=== PATIENT | female | born 1960 | race American Indian/Alaskan Native ===

== ENCOUNTER 2018-05-15 20:33 | Emergency (ER) | payer OTHER ==
[2018-05-15 21:49] LABS: Basophils % (Auto) 0.9 % (0.0-1.8); Eosinophils # (Auto) 0.1 K/mm3 (0.0-0.4); Eosinophils % (Auto) 2.4 % (0.0-4.3); Hematocrit 41.6 % (30.3-42.9); Hemoglobin 14.1 gm/dl (10.1-14.3); Lymphocytes # (Auto) 1.6 K/mm3 (1.2-5.4); Lymphocytes % (Auto) 31.4 % (13.4-35.0); Mean Corpuscular HGB Conc 34 % (30-34); Mean Corpuscular Hemoglobin 33 pg (28-32); Mean Corpuscular Volume 97 fl (79-97); Monocytes # (Auto) 0.4 K/mm3 (0.0-0.8); Monocytes % (Auto) 7.9 % (0.0-7.3); Platelet Count 133 K/mm3 (140-440); Red Blood Count 4.31 M/mm3 (3.65-5.03); Red Cell Distribution Width 14.2 % (13.2-15.2)
--- NOTE | 2018-05-15 21:54 | Emergency Department Report ---
HPI - General Chief Complaint: Fall Time Seen by Provider: 05/15/18 20:47 - HPI HPI: 57-year-old female presents to the emergency department via EMS from home with complaint of some back pain after a slip and fall in her kitchen. The patient says that she been dealing with some water leaking. She heard a strange noise in the kitchen and went to check on it, slipped on the water, and fell backwards. She thinks that she had her head but denies any loss of consciousness. She denies any numbness or paresthesias or any problems moving her extremities. She did not take anything or get anything for her symptoms. On presentation. She came in in a c-collar and on a backboard. She has a past medical history of hypertension. ED Past Medical Hx - Past Medical History Hx Hypertension: Yes - Social History Smoking Status: Never Smoker Substance Use Type: None ED Review of Systems ROS: Stated complaint: FALL/BODY INJURY Other details as noted in HPI Comment: All other systems reviewed and negative Constitutional: denies: chills, fever Eyes: denies: eye pain, eye discharge, vision change ENT: denies: ear pain, throat pain Respiratory: denies: cough, shortness of breath, wheezing Cardiovascular: denies: chest pain, palpitations Gastrointestinal: denies: abdominal pain, nausea, diarrhea Genitourinary: denies: urgency, dysuria, discharge Musculoskeletal: back pain, myalgia Skin: denies: rash, lesions Neurological: denies: numbness, paresthesias Physical Exam - Physical Exam Vital Signs: Vital Signs 05/15/18 20:46 Temperature 98.6 F Pulse Rate 89 Blood Pressure 143/87 O2 Sat by Pulse 96 Oximetry Physical Exam: GENERAL: The patient is well-developed well-nourished. HENT: Normocephalic. Atraumatic. Patient has moist mucous membranes. EYES: Extraocular motions are intact. Pupils equal reactive to light bilaterally. No nystagmus. NECK: Supple. Trachea is midline. CHEST/LUNGS: Clear to auscultation. There is no respiratory distress noted. HEART/CARDIOVASCULAR: Regular. There is no tachycardia. There is no murmur. ABDOMEN: Abdomen is soft, nontender. Patient has normal bowel sounds. There is no abdominal distention. SKIN: Skin is warm and dry. NEURO: The patient is awake, alert, and oriented. The patient is cooperative. The patient has no focal neurologic deficits. The patient has normal speech. MUSCULOSKELETAL: There is some mild tenderness palpation to the right hip but no obvious deformity. There is no limitation range of motion. There is no evidence of acute injury. BACK: There is both midline and bilateral paraspinal tenderness along the upper lumbar and the lower thoracic back but no step-off or deformity. ED Course Vital Signs 05/15/18 20:46 Temperature 98.6 F Pulse Rate 89 Blood Pressure 143/87 O2 Sat by Pulse 96 Oximetry ED Medical Decision Making - Lab Data Result diagrams: 05/15/18 21:31 05/15/18 21:31 - Radiology Data Radiology results: report reviewed, image reviewed interpreted by me: X-ray of the right femur does not show any fracture, dislocation or any acute processes. X-rays of the thoracic and lumbar spines do not show any fractures, subluxations or any other acute process. EXAM: CT CERVICAL SPINE WO CON HISTORY: Trauma TECHNIQUE: Helical axial CT imaging of the cervical spine. Images are reconstructed in the sagittal and coronal planes. PRIORS: None. FINDINGS: The vertebral bodies have normal height and alignment. There is no evidence of fracture or subluxation. The paraspinous soft tissues are unremarkable. IMPRESSION: No evidence of acute fracture or subluxation. Transcribed By: AILYN Dictated By: KENNEY AGRAWAL MD Electronically Authenticated By: KENNEY AGRAWAL MD Signed Date/Time: 05/15/182217 EXAM: CT HEAD/BRAIN WO CON HISTORY: Trauma TECHNIQUE: CT was performed from the foramen magnum through the vertex in the axial plane without the use of intravenous contrast. PRIORS: None. FINDINGS: The roy/white matter attenuation pattern is normal. There is no mass lesion or mass effect. There are no abnormal extra-axial fluid collections. There is no evidence of acute intracranial hemorrhage or infarct. The ventricles are of normal size and configuration. The skull and orbits are unremarkable. The visualized paranasal sinuses are clear. IMPRESSION: Normal CT of the head. Transcribed By: AILYN Dictated By: KENNEY AGRAWAL MD Electronically Authenticated By: KENNEY AGRAWAL MD Signed Date/Time: 05/15/182214 - Medical Decision Making This patient presents with complaint of a headache and some back pain and hip pain after a slip and fall on some water in her kitchen. No loss of consciousness. She does not have any focal, motor or sensory deficits in her cranial nerves are intact. CT of the head did not show any bleed, shift, mass or any other acute process. CT of cervical spine did not show any fracture, subluxation or any acute process. We also did x-rays of the right femur and the thoracic and lumbar spines that also were normal examinations without any acute processes found. She was given a Isom for her headache with some improvement. Vital signs stable throughout her ED course. Prior to discharge patient was seen ambulatory throughout the emergency department and appeared stable while doing so. She will follow up with her primary care physician and will return to the ER with any worsening of her symptoms or any acute distress. - Differential Diagnosis brain bleed, skull fracture, contusion, concussion, fractures, sprain, stra Critical Care Time: No Critical care attestation.: If time is entered above; I have spent that time in minutes in the direct care of this critically ill patient, excluding procedure time. ED Disposition Clinical Impression: Fall Qualifiers: Encounter type: initial encounter Qualified Code(s): W19.XXXA - Unspecified fall, initial encounter Back pain Qualifiers: Back pain location: back pain in unspecified location Chronicity: acute Back pain laterality: bilateral Qualified Code(s): M54.9 - Dorsalgia, unspecified Headache Qualifiers: Headache type: unspecified Headache chronicity pattern: unspecified pattern Intractability: not intractable Qualified Code(s): R51 - Headache Disposition: DC-01 TO HOME OR SELFCARE Is pt being admited?: No Condition: Stable Instructions: Minor Head Injury (ED), Acute Headache (ED), Back Pain (ED), Fall Prevention (ED) Additional Instructions: Please follow-up with your primary care physician in the next few days. Return to the emergency Department with any worsening of your symptoms or any acute distress. Referrals: PRIMARY CARE, [Primary Care Provider] - [facility] Time of Disposition: 01:23
--- NOTE | 2018-05-15 22:15 | Cat Scan Report ---
FINAL REPORT EXAM: CT HEAD/BRAIN WO CON HISTORY: Trauma TECHNIQUE: CT was performed from the foramen magnum through the vertex in the axial plane without the use of intravenous contrast. PRIORS: None. FINDINGS: The roy/white matter attenuation pattern is normal. There is no mass lesion or mass effect. There are no abnormal extra-axial fluid collections. There is no evidence of acute intracranial hemorrhage or infarct. The ventricles are of normal size and configuration. The skull and orbits are unremarkable. The visualized paranasal sinuses are clear. IMPRESSION: Normal CT of the head.
--- NOTE | 2018-05-15 22:19 | Cat Scan Report ---
FINAL REPORT EXAM: CT CERVICAL SPINE WO CON HISTORY: Trauma TECHNIQUE: Helical axial CT imaging of the cervical spine. Images are reconstructed in the sagittal and coronal planes. PRIORS: None. FINDINGS: The vertebral bodies have normal height and alignment. There is no evidence of fracture or subluxation. The paraspinous soft tissues are unremarkable. IMPRESSION: No evidence of acute fracture or subluxation.
[2018-05-15 22:43] LABS: Alanine Aminotransferase 18 units/L (7-56); Albumin 4.3 g/dL (3.9-5); BUN/Creatinine Ratio 28; Blood Urea Nitrogen 17 mg/dL (7-17); Calcium 9.1 mg/dL (8.4-10.2); Hemolysis Index 20
--- NOTE | 2018-05-16 00:28 | XRay Report ---
FINAL REPORT EXAM: XR FEMUR 2+V RT HISTORY: Trauma TECHNIQUE: AP and lateral views of the right femur PRIORS: None. FINDINGS: The bones are normally aligned and mineralized. There is no evidence of fracture or subluxation. The soft tissues are unremarkable. IMPRESSION: No evidence of acute injury.
[2018-05-16] MEDS ORDERED: NORCO 5/325 PO ONE (00:35)
--- NOTE | 2018-05-16 00:52 | XRay Report ---
FINAL REPORT PROCEDURE: XR SPINE THORACIC 2V TECHNIQUE: Thoracic spine radiographs, including AP and lateral projections. CPT 82373 HISTORY: Trauma COMPARISON: No prior studies are available for comparison. FINDINGS: Alignment: Normal . Vertebral body height: Normal . Disk spaces: Normal . Fracture(s): None . Bone mineralization: Normal . IMPRESSION: Normal Examination.
--- NOTE | 2018-05-16 00:53 | XRay Report ---
FINAL REPORT PROCEDURE: XR SPINE LUMBOSACRAL 2-3V TECHNIQUE: Lumbar spine radiographs, including AP, lateral, and lumbosacral spot views. CPT 24507 HISTORY: Trauma COMPARISON: No prior studies are available for comparison. FINDINGS: Alignment: Normal. Vertebral body heights/Disk spaces: Normal. Fracture(s): None. Facets: Normal. Bone mineralization: Normal. IMPRESSION: Normal Examination.
[2018-05-16 01:40] VITALS: BP 123/81
== END 2018-05-16 01:40 | disposition home or self-care (01) ==
LOC: ED 20:33
DX: M54.5 Low back pain (principal); M54.6 Pain in thoracic spine; I10 Essential (primary) hypertension; R51 Headache; W01.0XXA Fall on same level from slipping, tripping and stumbling without subsequent striking against object, initial encounter; Y93.89 Activity, other specified; Y99.8 Other external cause status; Y92.000 Kitchen of unspecified non-institutional (private) residence as the place of occurrence of the external cause
CPT/HCPCS: 36415; 70450; 72070; 72100; 72125; 80053; 85025

== ENCOUNTER 2018-06-14 09:30 | Outpatient (CLI) | payer OTHER ==
--- NOTE | 2018-06-14 10:57 | XRay Report ---
RIGHT KNEE, 3 views: History: Pain. Moderate osteoarthritic changes are identified in all 3 compartments of the right knee. No evidence for fracture, bone lesion or osteochondral defect. A small joint effusion is identified on the lateral image. IMPRESSION: Moderate osteoarthritis. Small joint effusion. No acute process identified.
--- NOTE | 2018-06-14 10:58 | XRay Report ---
LEFT SHOULDER: History: Pain. Routine views demonstrate normal bony and soft tissue structures with normal joint alignment of the shoulder. IMPRESSION: Left shoulder within normal limits.
== END 2018-06-14 09:31 | disposition home or self-care (01) ==
LOC: XRAY 09:30
PROVIDERS: ATTEND Internal Medicine
DX: M17.11 Unilateral primary osteoarthritis, right knee (principal); M25.512 Pain in left shoulder; I10 Essential (primary) hypertension

== ENCOUNTER 2018-11-24 15:45 | Emergency (ER) | payer OTHER ==
[2018-11-24 16:10] VITALS: BP 148/101
--- NOTE | 2018-11-24 16:12 | Emergency Department Report ---
Chief Complaint: Abdominal Pain Stated Complaint: DIZZY Time Seen by Provider: 11/24/18 16:08 - HPI History of Present Illness: CC DIZZY THINKS SHE MIGHT ANEMIA BM YESTERDAY NORMAL NO FEVER NO CO ABD PAIN HX ANEMIA RECENT UGI/LGI WORK UP HTN PSH COLONOSCOPY ENDOSCOPY- 10/06 AT [facility]- SEE PTS PAPERWORK HYSTERECTOMY KNEE ON R KNEE MSE COMPLETED MSE screening note: Focused history and physical exam performed. Due to findings the following was ordered: ED Disposition for MSE Condition: Stable Instructions: Abdominal Pain (ED)
[2018-11-24 16:37] LABS: Basophils % (Auto) 0.4 % (0.0-1.8); Eosinophils # (Auto) 0.2 K/mm3 (0.0-0.4); Eosinophils % (Auto) 4.2 % (0.0-4.3); Hemoglobin 13.9 gm/dl (10.1-14.3); Lymphocytes # (Auto) 2.1 K/mm3 (1.2-5.4); Lymphocytes % (Auto) 39.7 % (13.4-35.0); Mean Corpuscular HGB Conc 34 % (30-34); Mean Corpuscular Volume 95 fl (79-97); Monocytes # (Auto) 0.4 K/mm3 (0.0-0.8); Monocytes % (Auto) 7.8 % (0.0-7.3); Platelet Count 149 K/mm3 (140-440); Red Cell Distribution Width 14.3 % (13.2-15.2)
[2018-11-24 16:53] LABS: Alanine Aminotransferase 17 units/L (7-56); Albumin 4.3 g/dL (3.9-5); BUN/Creatinine Ratio 10; Blood Urea Nitrogen 6 mg/dL (7-17); Calcium 9.1 mg/dL (8.4-10.2); Hemolysis Index 6
[2018-11-24 16:55] LABS: Bilirubin,Direct < 0.2 mg/dL (0-0.2)
[2018-11-24 17:24] LABS: Bilirubin,Urine NEG (Negative); Blood,Urine NEG (Negative); Color,Urine Colorless (Yellow); Protein,Urine <15 mg/dL mg/dL (Negative); Urobilinogen,Urine < 2.0 mg/dL (<2.0); WBC,Urine < 1.0 /HPF (0.0-6.0)
--- NOTE | 2018-11-24 20:34 | XRay Report ---
PROCEDURE: Chest. TECHNIQUE: PA and lateral views. HISTORY: Chest wall pain. COMPARISONS: None. FINDINGS: The heart size is mildly enlarged. There is mild tortuosity of the thoracic aorta. The lungs are oliva r and well expanded. There are no pleural effusions. The soft tissues and regional skeleton are unrem arkable. IMPRESSION: Mild cardiomegaly. This document is electronically signed by Huang Mcmahon MD., November 24 2018 08:32:03 PM ET
[2018-11-24] MEDS ORDERED: IBUPROFEN PO ONE (20:42)
[2018-11-24] MEDS ORDERED: BENADRYL PO ONE (20:44)
--- NOTE | 2018-11-24 20:48 | Emergency Department Report ---
ED Abdominal Pain HPI - General Chief Complaint: Abdominal Pain Stated Complaint: DIZZY Time Seen by Provider: 11/24/18 16:08 Source: patient Mode of arrival: Ambulatory Limitations: No Limitations - History of Present Illness Initial Comments: Patient's seizure after female who presents for dizziness and intermittent midepigastric pain radiating to left upper back denies nausea vomiting no shortness of breath no diaphoresis no filament coming to patient denies cardiac history hx of GI polyps however there is no n/v no bloody stools pt is tolerating po intake pt denies sob no activity intolerance does endorse URI with sinus pressure MD Complaint: abdominal pain Onset/Timin -: week(s) Location: epigastric Radiation: back Migration to: no migration Severity scale (0 -10): 3 Quality: aching (spasm blas) Consistency: intermittent Improves With: other (belching ) Worsens With: movement Associated Symptoms: denies: nausea, vomiting, diarrhea, fever, chills, constipation, dysuria, hematemesis, hematochezia, melena, hematuria, anorexia, s yncope - Related Data LMP (females 10-50): other (post menopausal) Previous Rx's Medication Instructions Recorded Last Taken Type Ibuprofen 800 mg PO TID PRN #30 tablet 11/24/18 Unknown Rx diphenhydrAMINE [Benadryl CAP] 25 mg PO Q6HR PRN #30 capsule 11/24/18 Unknown Rx Allergies Allergy/AdvReac Type Severity Reaction Status Date / Time Iodine and Iodide Containing Allergy Swelling Verified 05/15/18 21:39 Produc ED Review of Systems ROS: Stated complaint: DIZZY Other details as noted in HPI Constitutional: denies: chills, fever Eyes: denies: eye pain, eye discharge, vision change ENT: denies: ear pain, throat pain Respiratory: denies: cough, shortness of breath, wheezing Cardiovascular: denies: chest pain, palpitations, dyspnea on exertion, orthopnea, syncope, paroxysmal nocturnal dyspnea Endocrine: no symptoms reported Gastrointestinal: abdominal pain. denies: nausea, vomiting, diarrhea, constipation, hematemesis, melena, hematochezia Genitourinary: denies: urgency, dysuria, discharge Musculoskeletal: back pain. denies: joint swelling, arthralgia Skin: denies: rash, lesions Neurological: denies: headache, weakness, numbness, paresthesias, confusion, abnormal gait, vertigo Psychiatric: denies: anxiety, depression Hematological/Lymphatic: denies: easy bleeding, easy bruising ED Past Medical Hx - Past Medical History Previous Medical History?: Yes Hx Hypertension: Yes Additional medical history: polyps - Surgical History Past Surgical History?: Yes Additional Surgical History: polyps surgery - Social History Smoking Status: Never Smoker Substance Use Type: None - Medications Home Medications: Home Medications Medication Instructions Recorded Confirmed Last Taken Type Ibuprofen 800 mg PO TID PRN #30 tablet 11/24/18 Unknown Rx diphenhydrAMINE [Benadryl CAP] 25 mg PO Q6HR PRN #30 capsule 11/24/18 Unknown Rx ED Physical Exam - General Limitations: No Limitations General appearance: alert, in no apparent distress - Head Head exam: Present: atraumatic, normocephalic - Eye Eye exam: Present: normal appearance, PERRL, EOMI Pupils: Present: normal accommodation - ENT ENT exam: Present: normal orophraynx, mucous membranes moist, TM's normal bilaterally, normal external ear exam - Expanded ENT Exam Expanded Ear exam: Present: normal external inspection Mouth exam: Present: normal external inspection Throat exam: Positive: normal inspection, other (uvula midline no stridor no swelling no exudate no lesion ). Negative: tonsillar erythema, tonsillomegaly, tonsillar exudate, R peritonsillar mass, L peritonsillar mass - Neck Neck exam: Present: normal inspection - Respiratory Respiratory exam: Present: normal lung sounds bilaterally, chest wall tenderness (left lateral chest wall tenderness to palpation). Absent: respiratory distress, wheezes, stridor - Cardiovascular Cardiovascular Exam: Present: regular rate, normal rhythm, normal heart sounds. Absent: systolic murmur, diastolic murmur, rubs, gallop - GI/Abdominal GI/Abdominal exam: Present: soft, normal bowel sounds. Absent: distended, tenderness, guarding, rebound, rigid, bruit, hernia - Rectal Rectal exam: Present: deferred - Extremities Exam Extremities exam: Present: normal inspection, full ROM, normal capillary refill. Absent: tenderness, pedal edema, joint swelling, calf tenderness - Back Exam Back exam: Present: normal inspection, full ROM, muscle spasm. Absent: tenderness, CVA tenderness (R), CVA tenderness (L), paraspinal tenderness, vertebral tenderness, rash noted - Neurological Exam Neurological exam: Present: alert, oriented X3, CN II-XII intact, normal gait, reflexes normal - Psychiatric Psychiatric exam: Present: normal affect, normal mood - Skin Skin exam: Present: warm, dry, intact, normal color. Absent: rash ED Course Vital Signs 11/24/18 16:07 Temperature 98.7 F Pulse Rate 79 Respiratory 16 Rate Blood Pressure 148/101 O2 Sat by Pulse 99 Oximetry ED Medical Decision Making - Lab Data Result diagrams: 11/24/18 16:27 11/24/18 16:27 Labs 11/24/18 11/24/18 11/24/18 16:27 16:27 16:50 WBC 5.4 RBC 4.30 Hgb 13.9 Hct 41.0 MCV 95 MCH 32 MCHC 34 RDW 14.3 Plt Count 149 Lymph % (Auto) 39.7 H Rabun % (Auto) 7.8 H Eos % (Auto) 4.2 Baso % (Auto) 0.4 Lymph # 2.1 Rabun # 0.4 Eos # 0.2 Baso # 0.0 Seg Neutrophils % 47.9 Seg Neutrophils # 2.6 Sodium 144 Potassium 3.9 Chloride 105.5 Carbon Dioxide 29 Anion Gap 13 BUN 6 L Creatinine 0.6 L Estimated GFR > 60 BUN/Creatinine Ratio 10 Glucose 109 H Calcium 9.1 Total Bilirubin 0.30 Direct Bilirubin < 0.2 Indirect Bilirubin 0.1 AST 19 ALT 17 Alkaline Phosphatase 82 Total Protein 7.1 Albumin 4.3 Albumin/Globulin Ratio 1.5 Lipase 18 Urine Color Colorless Urine Turbidity Clear Urine pH 7.0 Ur Specific [place] 1.003 Urine Protein <15 mg/dl Urine Glucose (UA) Neg Urine Ketones Neg Urine Blood Neg Urine Nitrite Neg Urine Bilirubin Neg Urine Urobilinogen < 2.0 Ur Leukocyte Esterase Neg Urine WBC (Auto) < 1.0 Urine RBC (Auto) 1.0 U Epithel Cells (Auto) < 1.0 - EKG Data EKG shows normal: sinus rhythm, intervals, QRS complexes, ST-T waves Rate: normal - EKG Data When compared to previous EKG there are: previous EKG unavailable Interpretation: normal EKG (ekg interp by ed attending nsr no st elevation no ectopy ), LVH - Radiology Data Radiology results: report reviewed, image reviewed Ordering Physician: SIRENA HDZ NP Date of Service: 11/24/18 Procedure(s): XR chest routine 2V Accession Number(s): [id number] cc: SIRENA HDZ NP Fluoro Time In Minutes: PROCEDURE: Chest. TECHNIQUE: PA and lateral views. HISTORY: Chest wall pain. COMPARISONS: None. FINDINGS: The heart size is mildly enlarged. There is mild tortuosity of the thoracic aorta. The lungs are clear and well expanded. There are no pleural effusions. The soft tissues and regional skeleton are unremarkable. IMPRESSION: Mild cardiomegaly. This document is electronically signed by Huang Solis MD., November 24 2018 08:32:03 PM ET Transcribed By: MRM Dictated By: HUANG SOLIS MD Electronically Authenticated By: HUANG SOLIS MD Signed Date/Time: 11/24/182033 - Medical Decision Making cxr: mild cardiomegally, no infiltrate no opacities, there is no fever no chills no n/v no sob no wheezing, back pain is reproducible to palpation , dizziness is resolve, Trop: <0.01, cbc, cmp normal ua: normal plan, follow up with pcp in 2- 3 days follow given referral to [facility] pt will return to ed if symptoms worsen, pt verbalized agreement and understanding with discharge plan. pt for dc to home with nad at this time. Critical care attestation.: If time is entered above; I have spent that time in minutes in the direct care of this critically ill patient, excluding procedure time. ED Disposition Clinical Impression: Dizziness, Chest wall pain Disposition: DC-01 TO HOME OR SELFCARE Is pt being admited?: No Does the pt Need Aspirin: No Condition: Stable Instructions: Costochondritis (ED), Abdominal Pain (ED), Dizziness (ED), Chest Pain (ED) Prescriptions: diphenhydrAMINE [Benadryl CAP] 25 mg PO Q6HR PRN #30 capsule PRN Reason: dizziness Ibuprofen 800 mg PO TID PRN #30 tablet PRN Reason: pain Referrals: ASHIA OGLESBY MD [Primary Care Provider] - 3-5 Days [facility] [Outside] - 3-5 Days Forms: Work/School Release Form(ED) Time of Disposition: 21:08
== END 2018-11-24 21:30 | disposition home or self-care (01) ==
LOC: ED 15:45
DX: R07.89 Other chest pain (principal); R42 Dizziness and giddiness; I10 Essential (primary) hypertension; Z91.09 Other allergy status, other than to drugs and biological substances
CPT/HCPCS: 36415; 71046; 80048; 80076; 81001; 83690; 84484; 85025; 93005; 93010